=== PATIENT | female | born 1960 | race Caucasian/White ===

== ENCOUNTER → 2018-04-14 | Outpatient (CLI) | payer OTHER ==
--- NOTE | 2018-04-15 16:30 | MAM ---
EXAM DESCRIPTION: 3D Screening BILATERAL : Digital Mammography. CLINICAL HISTORY: 57 years Female SCREENING . No complaints. No personal history of breast cancer. Remote family history of breast cancer. Childbirth. Postmenopausal. No HRT. Right breast biopsy. Left breast cyst aspiration. Lifetime risk of developing breast cancer (Tyrer-Cuzick model) is 9.1 %. COMPARISON: Baseline study at this facility. No prior reports available. TECHNIQUE: Bilateral CC and MLO projection full-field images, Digital tomosynthesis mammographic technique. Bilateral digital 2-D full-field MLO images. CAD not utilized. FINDINGS: The breast parenchymal density pattern is: Scattered areas of fibroglandular density. No skin thickening or nipple retraction. Densest tissue is in the anterior third of the bilateral breasts retroareolar and laterally. Focal asymmetry in the lateral right breast tissue abutting the nipple at the 900 and 830 clock positions, partially retroareolar. Marginal calcifications. Slightly smaller focal asymmetry in the retroareolar left breast at the posterior nipple line. No associated calcifications. IMPRESSION: BI-RADS CATEGORY: 0 - INCOMPLETE- Need additional imaging evaluation. FOLLOW-UP: Recall for additional imaging: Bilateral targeted breast ultrasound of the regions of interest. Written communication concerning the IMPRESSION and Follow-up, will be mailed to the patient and referring health care provider. Electronically signed by: Rafita Cervantes MD 04/15/2018 4:29 PM CDT
== END ==
LOC: MAMMO 13:00
PROVIDERS: ATTEND Family Medicine
DX: Z12.31 Encounter for screening mammogram for malignant neoplasm of breast (principal)

== ENCOUNTER → 2018-04-29 | Outpatient (CLI) | payer OTHER ==
--- NOTE | 2018-04-29 11:55 | US ---
EXAM DESCRIPTION: Breast,Bilateral: Ultrasound CLINICAL HISTORY: 57 yearsFemaleABNORMAL MAMMOGRAM. Bilateral focal asymmetry retroareolar breasts. COMPARISON: Digital screening tomosynthesis bilateral breast 04/14/2018. TECHNIQUE: Transcutaneous scanning of the bilateral breast utilizing archuleta-scale and Doppler modes. Scanning performed by the proposal review analyst and Dr. Cervantes. FINDINGS: Scanning of the bilateral retroareolar breast with emphasis at the 900 clock position of the right breast, and the retroareolar left breast. Heterogeneous fibroglandular and fatty echotexture. No distinct solid mass or cyst. No large calcifications or parenchymal edema. No overlying skin changes. No abnormal vascularity. IMPRESSION: Benign exam. BIRAD CATEGORY: 2 BENIGN FINDINGS. RECOMMENDATIONS: FOLLOW UP: Routine digital bilateral screening, one year interval from April 2018. The FINDINGS and the FOLLOW-UP plan were reviewed in person with the patient after the examination. Written communication explaining the IMPRESSION and FOLLOW-UP will be mailed to the patient and referring care provider. According to the [employer], yearly mammograms are recommended starting at age 40 and continuing as long as a woman is in good health. Any breast change noted on a breast self-exam should be reported promptly to the patient's healthcare provider. Breast MRI is recommended for women with an approximately 20-25% or greater lifetime risk of breast cancer, including women with a strong family history of breast or ovarian cancer and women who have been treated for Hodgkin's disease. A negative mammographic report should not delay tissue diagnosis in patients with significant clinical history or physical findings. Extremely dense breast tissue limits the sensitivity of digital mammography. Electronically signed by: Rafita Cervantes MD 04/29/2018 11:53 AM CDT
== END ==
LOC: MAMMO 11:00
PROVIDERS: ATTEND Family Medicine
DX: R92.8 Other abnormal and inconclusive findings on diagnostic imaging of breast (principal)